=== PATIENT | female | born 1985 | race Caucasian/White ===

== ENCOUNTER → 2018-05-08 | Outpatient (CLI) | payer OTHER ==
--- NOTE | 2018-05-08 10:50 | RAD ---
EXAM: Lumbar spine, 3 views. HISTORY: Pain. Disability. COMPARISON: None. FINDINGS: Frontal, lateral and coned sacral views of the lumbar spine are obtained. There is no listhesis. The vertebral bodies are normal in height and the disc spaces are preserved. There is a catheter overlying the left abdomen and pelvis. IMPRESSION: No acute osseous finding. Electronically signed by: Willa Barton MD (05/08/2018 10:47 AM) [id number]
== END | disposition home or self-care (01) ==
LOC: DXRAD 10:09
PROVIDERS: ATTEND Surgery
DX: M54.9 Dorsalgia, unspecified (principal)
CPT/HCPCS: 72100